=== PATIENT | male | born 2005 | race Caucasian/White ===

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

== ENCOUNTER 2023-12-23 17:38 | Emergency (ER) | payer OTHER, SELFPAY ==
[2023-12-23 17:39] VITALS: BP 119/74; PULSE 88; RESP 16; TEMP 36.8; O2SAT 99; BMI 22.0
--- NOTE | 2023-12-23 22:06 | RAD_ITS ---
INDICATION: cough EXAMINATION/TECHNIQUE: X-RAY - XR Chest 2 Views COMPARISON: FINDINGS: LINES/DEVICES: None. LUNGS: There is a right lower lobe infiltrate. No pneumothorax. MEDIASTINUM AND CARDIOVASCULAR STRUCTURES: Cardiac silhouette not enlarged. Central airways and mediastinal contour are unremarkable. BONES AND SOFT TISSUES: Unremarkable. RAD/Chest PA and Lateral IMPRESSION: Right lower lobe infiltrate. Electronically Signed: Fritz Guzman DO at 22:27 EDT ,
--- NOTE | 2023-12-23 22:08 | EDS_ITS ---
HPI History of Present Illness Chief Complaint: Cold Sx Informant: patient Narrative Narrative: Patient is a 18-year-old male with no significant past medical history. He states he has had congestion and drainage for approximately 2 weeks but over the last 5 days has had a fever of 101-102. He states he has had increasing cough for the past 5 days and has noticed some pain and irritation in his right sided low back. He denies any nausea vomiting diarrhea or dysuria. He denies any history of immunosuppression. However because of the persistent fever and cough he is concern for an infectious process and therefore comes in for evaluation [facility] Medical History no medical history no medical history Home Medications ?Medication ?Instructions ?Recorded ?Last Taken ?Type azithromycin 250 mg tablet See Rx Instructions PO .COMPLEX #6 12/23/23 Unknown Rx tabs doxycycline hyclate 100 mg capsule 100 mg PO BID 10 days #20 caps 12/23/23 Unknown Rx Allergy/AdvReac Type Severity Reaction Status Date / Time tree nut (tree nuts) Allergy Severe Anaphylaxis Verified 12/23/23 17:39 Penicillins (PCN) Allergy Mild Hives Verified 12/23/23 17:39 Social History Smoking Status: Never smoker [facility] ED Constitutional Constitutional ED: Reports chills and fever(s) Eyes Eyes: Denies blurry vision or change in vision ENT ENT ED: Reports rhinorrhea; Denies sore throat Cardiovascular Cardiovascular: Denies chest pain Respiratory/Chest Respiratory/Chest: Reports cough and dyspnea Gastrointestinal Gastrointestinal: Denies abdominal pain, diarrhea, nausea or vomiting Genitourinary Genitourinary ED: Denies dysuria Musculoskeletal Musculoskeletal: Reports myalgias Integumentary Denies rash Neurologic Neurologic: Denies headache(s) Hematologic/Lymphatic Hematologic/Lymphatic: Denies easy bleeding or easy bruising Allergic/Immunologic Allergic/Immunologic ED: Denies mouth swelling or tongue swelling EXAM Physical Exam Const Vital Signs: 12/23/23 17:39 12/23/23 22:17 12/23/23 22:51 Temperature 98.3 F Temperature Source Oral Pulse Rate 88 72 Respiratory Rate 16 18 Respiratory Effort Normal Respiratory Pattern Normal Blood Pressure 119/74 121/71 H Blood Pressure Mean 89 87 Pulse Ox 99 Oxygen Delivery Method Room Air Positive well nourished and well developed General Appearance ED: well developed; Negative for pallor HEENT HEENT Narrative: Bilateral TMs are retracted but show no secondary changes to suggest infection Nasal mucosa is hyperemic and boggy with clear discharge bilaterally Posterior pharynx displays cobblestoning consistent with sinus drainage without airway edema or compromise No tongue or lip swelling no oral lesions no secondary findings to suggest infection Eyes PERRL and EOMs intact bilaterally Neck supple and no JVD Chest Wall palpation of chest normal Resp normal respiratory effort Resp Narrative: Patient has rhonchi diffusely which are greatest in the right lower lobe. Otherwise no nasal flaring retractions tachypnea or accessory muscle use Cardio regular rate and regular rhythm Extremity normal to inspection Extremity Narrative: No asymmetric edema no pitting edema negative Homans' sign bilaterally Neuro oriented x3, CN's II-XII intact bilaterally and no sensory deficits noted Sensorium / Orientation: alert Motor Exam: strength 5/5 throughout Psych mental status grossly normal Skin no rashes or lesions noted General Skin Exam: Negative for jaundice or pallor MDM MDM MDM Narrative Medical decision making narrative: Patient arrived to the ER afebrile and in no acute respiratory distress. He reported 2 weeks of congestion followed by 5 days of fever. Differential diagnosis is for viral upper respiratory tract infection such as COVID versus influenza versus RSV. There is concern for otitis media versus sinusitis versus pneumonia. I discussed obtaining a viral swab but patient states that he will just take a home test. By physical exam he does not have sinusitis or otitis media. On physical exam he did have worsening breath sounds in the right lower lobe and reported pain at the site therefore a chest x-ray was obtained. X-ray confirmed right lower lobe pneumonia. The pneumonia is in a single lobe the patient is not tachypneic or hypoxic or showing signs of respiratory distress and vital signs do not suggest septicemia. Therefore he will be placed on oral antibiotics but is otherwise safe for discharge History & Record Review Discussion w/independent historian: Patient Radiography Diagnostic Testing: Clinical Impression(s) from Imaging Studies Chest X-Ray 12/23/23 22:06 IMPRESSION: Right lower lobe infiltrate. Electronically Signed: Fritz Guzman DO at 22:27 EDT Reading Location ID and State: [facility] / [place] Tel [phone], Service support , 2 view chest x-ray as interpreted by the emergency medicine physician reveals a right lower lobe infiltrate Discharge Plan Triage Chief Complaint: Cold Sx ED Provider: Omar Smith Dx/Rx/DC Orders Clinical Impression: Right lower lobe pneumonia, Pyrexia Instructions: ED Pneumonia (Adult) Prescriptions: New azithromycin 250 mg tablet See Rx Instructions .ROUTE .COMPLEX Qty: 6 0RF Rx Instructions: For 250 mg dose pack: take 500 mg today (day 1), then 250 mg for 4 days (days 2-5) doxycycline hyclate 100 mg capsule 100 mg PO BID 10 Days Qty: 20 0RF Primary Care Provider: Care Physician,No Primary Referrals: Lukas Solano MD [Med Staff - Active Staff] - Care Physician,No Primary [Primary Care Provider] - Activity Restrictions/Additional Instructions: Take the antibiotics as directed to help resolve your pneumonia. It would typically take 48 to 72 hours for the antibiotics to take effect and you may still have a fever during this time. If you have any further concerns or worsening symptoms please return to the hospital for repeat evaluation Print Language: Armenian Disposition Disposition: Home, Self Care Discharge Date/Time: 12/23/23 22:53
[2023-12-23] MEDS: dexAMETHasone 10 MG/ML Vial PO.IVFORM (22:14)
[2023-12-23 22:17] VITALS: BP 121/71; PULSE 72; RESP 18
== END 2023-12-23 22:53 | disposition home or self-care (01) ==
PROVIDERS: Emergency Provider Emergency Medicine; Visit Provider Emergency Medicine
DX: J18.9 Pneumonia, unspecified organism (principal)
CPT/HCPCS: 71046; 99282

== ENCOUNTER 2024-05-07 09:56 | Emergency (ER) | payer BC, SELFPAY ==
[2024-05-07] VITALS (9 sets, daily range): BP systolic 105–126; BP diastolic 59–81; PULSE 76–120; RESP 12–18; TEMP 36.1–36.3; O2SAT 99–100; BMI 23.7
--- NOTE | 2024-05-07 10:06 | EX.ED.GENINJ ---
HPI History of Present Illness Chief Complaint: Dislocation Detail of Chief Complaint: I think I dislocated my right shoulder Informant: patient and friend Onset/Context/Timing Onset: Today Mechanism/Context: Blunt Injury and Fall Location of pain/injuries: Right shoulder Location: Right shoulder Current Severity: Mild Maximum Severity: Moderate Worsened by: Attempted move right upper extremity Relieved by: Nothing Associated Symptoms Associated Symptoms: Positive for Loss of function; Negative for Parasthesias, Weakness, Inability to ambulate, Loss of consciousness or Amnesia Narrative Narrative: Patient slipped down several steps. He states he injured his shoulder. There is no direct trauma. He denies paresthesia, anesthesia or motor weakness. He denies head trauma. He is a [employer] student. He lives out of town. Prior similar symptoms: No Recent Illness/Hospitalization: No [facility] Medical History Anxiety and depression ADHD Home Medications ?Medication ?Instructions ?Recorded ?Last Taken ?Type dextroamphetamine-amphetamine ER 1 cap PO DAILY 05/07/24 Unknown History 10 mg 24hr capsule,extend release fluoxetine 40 mg capsule 80 mg PO DAILY 05/07/24 Unknown History Allergy/AdvReac Type Severity Reaction Status Date / Time tree nut (tree nuts) Allergy Severe Anaphylaxis Verified 05/07/24 09:58 Penicillins (PCN) Allergy Mild Hives Verified 05/07/24 09:58 Social History household members: other current occupational status: student Smoking Status: Current every day smoker tobacco type: e-cigarettes ROS ROS ED Musculoskeletal Musculoskeletal: Reports other; Denies arthralgias, back pain, myalgias or neck pain Neurologic Neurologic: Denies headache(s), paresthesias or weakness Hematologic/Lymphatic Hematologic/Lymphatic: Denies easy bleeding or easy bruising EXAM Physical Exam Const Vital Signs: 05/07/24 09:56 05/07/24 10:16 05/07/24 10:59 Temperature 96.9 F L Temperature Source Temporal Pulse Rate 95 86 Pulse Rate [1 (Initial Baseline)] Respiratory Rate 14 12 Respiratory Rate [1 (Initial Baseline)] Blood Pressure 122/77 H 121/79 H Blood Pressure [1 (Initial Baseline)] Blood Pressure Mean 92 Baseline BP 121/79 Pulse Ox 100 99 Oxygen Delivery Method Room Air Room Air Oxygen Delivery Method [1 (Initial Baseline)] Oxygen Flow Rate (L/min) [1 (Initial Baseline)] EtCo2 (Normal 35-45 , high quality CPR 10-20 & ROSC>/=40mmHg 39 EtCo2 (Normal 35-45 , high quality CPR 10-20 & ROSC>/=40mmHg [1 (Initial Baseline)] 05/07/24 11:21 05/07/24 11:26 05/07/24 11:31 Temperature Temperature Source Pulse Rate 82 81 Pulse Rate [1 (Initial Baseline)] 120 H Respiratory Rate 16 16 Respiratory Rate [1 (Initial Baseline)] 18 Blood Pressure 113/65 112/69 Blood Pressure [1 (Initial Baseline)] 126/81 H Blood Pressure Mean Baseline BP Pulse Ox 100 100 Oxygen Delivery Method Room Air Room Air Oxygen Delivery Method [1 (Initial Baseline)] Nasal Cannula Oxygen Flow Rate (L/min) [1 (Initial Baseline)] 4 EtCo2 (Normal 35-45 , high quality CPR 10-20 & ROSC>/=40mmHg 36 36 EtCo2 (Normal 35-45 , high quality CPR 10-20 & ROSC>/=40mmHg [1 (Initial Baseline)] 39 05/07/24 11:36 05/07/24 11:41 Temperature Temperature Source Pulse Rate 77 82 Pulse Rate [1 (Initial Baseline)] Respiratory Rate 17 14 Respiratory Rate [1 (Initial Baseline)] Blood Pressure 105/59 L 121/66 H Blood Pressure [1 (Initial Baseline)] Blood Pressure Mean Baseline BP Pulse Ox 100 100 Oxygen Delivery Method Room Air Room Air Oxygen Delivery Method [1 (Initial Baseline)] Oxygen Flow Rate (L/min) [1 (Initial Baseline)] EtCo2 (Normal 35-45 , high quality CPR 10-20 & ROSC>/=40mmHg 36 36 EtCo2 (Normal 35-45 , high quality CPR 10-20 & ROSC>/=40mmHg [1 (Initial Baseline)] Positive well nourished and well developed General Appearance ED: well developed; Negative for NAD HEENT atraumatic; Negative for tenderness Nose: Negative for septum abnormal Eyes PERRL and EOMs intact bilaterally Chest Wall inspection of chest normal and palpation of chest normal Resp normal respiratory effort Cardio regular rhythm Rate: regular rate Extremity Negative for normal to inspection Extremity Narrative: Patient has a empty glenoid fossa. Axillary, median and ulnar function intact. There is no pain the patient with the lateral medial epicondyle, olecranon process or radial head. There is no pain the patient over the distal radius or ulna. Radial pulses palpable. Neuro oriented x3, CN's II-XII intact bilaterally, no focal motor deficits and no sensory deficits noted Psych mental status grossly normal and thought process normal Skin no rashes or lesions noted, no wounds, skin turgor normal and no jaundice PROC Procedures Procedural Sedation 1 (Initial Baseline): Consent Signed: Yes Any Problems With Anesthesia: No You/Your family experience fever (hyperthermia) w/anesthesia: No Sedation medication: Propofol Dose: 200 Route: IV Total Moderate Sedation Units: 5 (Minutes) Maliampati Score: Class I ASA Classification: I Comment:: Monitor reveals sinus rhythm narrow complex rate of 80-84. pCO2 was 39. Patient saturations were above 95%. Using traction countertraction technique with assistance of ancillary shoulder was easily reduced with minimal effort. Patient was placed in a sling and swath. Postreduction film was ordered. MDM MDM MDM Narrative Medical decision making narrative: Clinically patient has an anterior right shoulder dislocation. Will obtain x-ray to rule out fracture associated with dislocation. Patient not had anything to eat or drink since last evening. He has no allergy to soy products or eggs. Plan is procedural sedation using propofol with traction countertraction technique to reduce his shoulder. Will obtain x-ray to confirm anterior dislocation and no associated fracture. Radiography Chest X-Ray - ED: 2 View (Patient has an anterior subcoracoid right shoulder dislocation. There is no evidence of a Hill-Sachs deformity. This is independent reviewed interpreted by me at 1033.) and - (2 view postreduction film reveals successful reduction.) Diagnostic Testing: Clinical Impression(s) from Imaging Studies Shoulder X-Ray 05/07/24 10:22 IMPRESSION: Anterior inferior dislocation of the right glenohumeral joint. Soft tissue swelling. Reading Location: [facility] Shoulder X-Ray 05/07/24 11:28 IMPRESSION: Satisfactory post-reduction films of the right shoulder. Reading Location: [facility] Discharge Plan Triage Chief Complaint: Dislocation ED Provider: Dallin Reed Dx/Rx/DC Orders Clinical Impression: Anterior dislocation of right shoulder Instructions: ED Dislocation: Shoulder (Reduced) Prescriptions: No Action dextroamphetamine-amphetamine 10 mg capsule,extended release 24hr 1 cap PO DAILY fluoxetine 40 mg capsule 80 mg PO DAILY Patient Comments: Take 2 capsules (80 mg) by mouth daily Primary Care Provider: Care Physician,No Primary Referrals: Care Physician,No Primary [Primary Care Provider] - Tobias Ventura MD [Med Staff - Active Staff] - 5-7 Days Activity Restrictions/Additional Instructions: 1. Apply ice to your right shoulder 6-8 times a day. 2. Do pendulous exercises starting tomorrow 3. Call Dr. Elena's office this afternoon for follow-up in 5 to 7 days Print Language: Ecuadorean Disposition Disposition: Home, Self Care
--- NOTE | 2024-05-07 10:22 | RAD_ITS ---
PROCEDURE: SHOULDER MIN 2 VIEWS REASON FOR EXAM: Shoulder dislocation due to a fall. TECHNIQUE: Two views of the right shoulder were obtained. COMPARISON: None. FINDINGS: RIGHT SHOULDER: No fracture. No suspicious bone lesion. There is evidence of anterior inferior dislocation of the right glenohumeral joint. Soft tissue swelling. RAD/Shoulder min 2 Views IMPRESSION: Anterior inferior dislocation of the right glenohumeral joint. Soft tissue swelling. Reading Location: [facility]
[2024-05-07] MEDS: fentaNYL 100 MCG/2 ML Ampul 50 MCG IV (10:55)
[2024-05-07] MEDS: Propofol 200 MG/20 ML Vial IV BOLUS (11:21)
--- NOTE | 2024-05-07 11:28 | RAD_ITS ---
PROCEDURE: SHOULDER MIN 2 VIEWS REASON FOR EXAM: Postreduction. TECHNIQUE: Two views of the right shoulder following reduction. COMPARISON: None. FINDINGS: RIGHT SHOULDER: No fracture. No suspicious bone lesion. Normal alignment of the acromioclavicular and glenohumeral joints. Soft tissues are unremarkable. RAD/Shoulder min 2 Views IMPRESSION: Satisfactory post-reduction films of the right shoulder. Reading Location: [facility]
== END 2024-05-07 12:43 | disposition home or self-care (01) ==
PROVIDERS: Emergency Provider Emergency Medicine; Visit Provider Emergency Medicine
DX: S43.014A Anterior dislocation of right humerus, initial encounter (principal); W10.9XXA Fall (on) (from) unspecified stairs and steps, initial encounter; F17.290 Nicotine dependence, other tobacco product, uncomplicated
CPT/HCPCS: 23650; 73030; 96374; 99284; A4216

== ENCOUNTER → 2024-06-19 | Outpatient (CLI) | payer BC, SELFPAY ==
--- NOTE | 2024-06-19 08:58 | RAD_ITS ---
EXAM: Right shoulder arthrogram. CLINICAL HISTORY: Possible torn labrum. COMPARISON: Comparison is made with prior study dated May 07, 2024. TECHNIQUE: The procedure as well as the benefits and possible complications including infection and bleeding were explained to the patient. Informed consent was obtained. 1 minute and 21 seconds of fluoroscopy. 15.7 mGy. The patient was in the supine position. The overlying skin was prepped and draped in the usual sterile fashion. Following local anesthetic application under direct fluoroscopic guidance, a 22 gauge spinal needle was placed into the shoulder joint. 2 cc of Isovue 300 was injected for confirmation. Following this, 10 cc of dilute MRI contrast was injected. The patient tolerated the procedure well. FINDINGS: Successful right shoulder arthrogram for MRI examination. Patient tolerated the procedure well. RAD/Arthrogram Shoulder w/ MRI IMPRESSION: Successful right shoulder arthrogram for MRI examination. The patient tolerate d the procedure well. Reading Location: [facility]-
[2024-06-19] MEDS: Lidocaine 2% (5ml sdv) 5 ML VIAL.MPF INFILT (09:42)
--- NOTE | 2024-06-19 09:44 | MRI_ITS ---
EXAM: MRI right shoulder arthrogram CLINICAL HISTORY: Pain, trauma, shoulder dislocation COMPARISON: None TECHNIQUE: Multisequence multiplanar MR images of the right shoulder were obtained after the administration of 10 mL of Clariscan intra-articular contrast. FINDINGS: Rotator cuff tendons are intact. No significant rotator cuff muscle atrophy. Intact long head biceps tendon. Glenohumeral alignment is preserved. Linear contrast accumulation along the base superior labrum at the level of the biceps anchor which could relate to a sublabral sulcus or tear. Remaining portions of the labrum appear intact. No focal chondral defects. Acromioclavicular joint is intact. Negative for acute fracture. Hill-Sachs deformity along the posterosuperior humeral head measuring 20 mm in width and 3 mm in depth with minimal edema. No bony Bankart. No fluid or contrast accumulation in the subacromial/subdeltoid bursa. MRI/Upper Ext Jt W/Contrast IMPRESSION: 1. Linear contrast accumulation along the base of the superior labrum near the biceps anchor which may relate to a sublabral sulcus or tear. Remaining portions of the labrum appear intact. No chondral d efects. 2. Hill-Sachs deformity along the posterior humeral head as above. 3. Intact rotator cuff. Reading Location: [facility]
[2024-06-19] MEDS: Gadoterate Meglumine Diluted 10 ML, Iopamidol 5 ML, Lidocaine 1% (20 ml mdv) 5 ML, Epin... INTRAARTIC (09:47)
[2024-06-19] MEDS: Iopamidol 10 ML in Syringe 1 EACH 600 ML INTRAARTIC (09:47)
--- NOTE | 2024-06-19 10:08 | PCM.OPRPT ---
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 Dotson INDICATION: Male, 18 years old. Right shoulder dislocation follow-up. PROVIDER: SURESH Small FLUOROSCOPY TIME: 1 minute / 21 seconds. 9 mGy CONSENT: The procedure as well as the benefits and possible complications including bleeding and infection were explained to the patient. Informed consent was obtained. TECHNIQUE: The patient was positioned supine. The overlying skin was prepped and draped in the usual sterile fashion. Following injection of local anesthetic with 2% lidocaine, a 22-gauge spinal needle was positioned under radiographic fluoroscopic localization. Approximately 2 cc of Isovue 300 instilled for localization purposes. Following this, 10 cc of arthrogram contrast (gadoterate, iopamidol, lidocaine, and epinephrine), compounded by pharmacy, was injected. All elements of maximal sterile barrier technique followed. Patient tolerated procedure well. There were no immediate complications. The procedure was proctored by interventional radiologist Dr. Kuhn. IMPRESSION: Successful fluoroscopic guided right shoulder arthrogram. Surgical Findings: None Complications Complications: No
== END | disposition home or self-care (01) ==
PROVIDERS: Referring Provider Orthopaedic Surgery Sports Medicine; Visit Provider Orthopaedic Surgery Sports Medicine
DX: S43.004A Unspecified dislocation of right shoulder joint, initial encounter (principal); X58.XXXA Exposure to other specified factors, initial encounter
CPT/HCPCS: 23350; 73222; 77002; Q9967